=== PATIENT | female | born 1985 | race Caucasian/White ===

== ENCOUNTER → 2016-11-21 | Outpatient (CLI) | payer MEDICAID ==
[2016-11-21 11:47] LABS: BASOPHILS % (AUTO) 1 % (0-2); EOSINOPHILS # (AUTO) 0.1 10^3uL; EOSINOPHILS % (AUTO) 2 % (0-4); LYMPHOCYTES # (AUTO) 2.2 X10^3; MEAN CORPUSCULAR HEMOGLOBIN 28.5 PG (26.0-34.0); MEAN CORPUSCULAR HGB CONC 34.4 g/dL (31.0-37.0); MEAN CORPUSCULAR VOLUME 83 FL (80-100); MEAN PLATELET VOLUME 10.2 FL (6.0-9.5); MONOCYTES # (AUTO) 0.7 X10^3; MONOCYTES % (AUTO) 10 % (3-11); NEUTROPHILS # (AUTO) 4.6 X10^3; NEUTROPHILS % (AUTO) 60 % (51-67); PLATELET COUNT 325 10^3uL (150-450); WHITE BLOOD COUNT 7.66 10^3uL (4.0-11.0)
[2016-11-21 12:00] LABS: ALBUMIN 4.6 g/dL (3.4-5.0); ANION GAP 18.1 MEQ/L (3-15); CALCULATED IONIZED CALCIUM 3.9 mg/dL (3.8-4.6); TOTAL PROTEIN 7.8 g/dL (6.4-8.5)
--- NOTE | 2016-11-21 12:44 | Diagnostic Imaging Report ---
INDICATION: Right upper quadrant pain AVAILABLE COMPARISONS: None EXAMINATION: Multiple real time grayscale images through the right upper quadrant were obtained. FINDINGS: The gallbladder was negative with no stone, wall thickening or abnormal pericholecystic fluid. Negative sonographic Fraga's sign. Common bile duct size was normal at 1 mm. No intrahepatic biliary ductal dilatation was identified. No hepatic lesions were visible. The visualized portions of the pancreas are negative. The tail was obscured by bowel gas. No free fluid was identified. Right kidney was negative. The aorta is within normal limits. IMPRESSION: 1. Negative right upper quadrant ultrasound. Dictated by: Dictated on workstation # [id number]
== END ==
LOC: LAB 11:29
PROVIDERS: ATTEND Physician Assistant
DX: R10.11 Right upper quadrant pain (principal)
CPT/HCPCS: 36415; 76705; 80053; 82150; 83690; 84443; 85025

== ENCOUNTER → 2016-11-21 | Outpatient (CLI) | payer MEDICAID ==
[2016-11-21 13:25] VITALS: BP 126/81
--- NOTE | 2016-11-21 13:25 | Urgent Care T Sheet Gen (E) ---
Intake General Temperature (Fahrenheit): 98.3 Pulse: 107 Blood Pressure Systolic: 126 Blood Pressure Diastolic: 81 Respirations: 18 SPO2: 96 Description of Symptoms Patient presents with a 1.5 year history of chronic RUQ pain. Patient has been seen intermittent over the time regarding the symptoms but states a firm diagnosis has never been established. Patient states her RUQ hurts most of the time with varying intensities. States the eating causes an increase in pain as well as nausea. She reports a 22# weight loss over the past year. Also notes intermittent heartburn. Patient takes Pepto on a regular basis for treatment of her abdominal symptoms. Denies any fevers or night sweats but states she is cold all the time. Also notes oily, yellow colored, loose stools. Patient has had lab work done which she reports "only showed the possibility of ulcers". Has also had an endoscopy and colonoscopy however both were unremarkable. Patient also described a procedure which sounds like a CT of the abdomen (she states she had a study which a dye was injected). Patient just moved to [place] and hasn't established with a PCP. Takes no scheduled medications. Respiratory Constitutional Symptoms: No Fever, Malaise EENTM: No symptoms reported Respiratory: No symptoms reported Cardiovascular: No symptoms reported Gastrointestinal/Abdominal: Abdominal pain Diarrhea NauseaNo Vomiting, RUQ All Other Systems Reviewed Remaining Systems: All other systems reviewed with negative findings Physical Exam Physical Exam General Appearance: WD/WN No apparent distress Eyes, Ears, Nose, Throat Ex: Pharynx normal (moist mucous membranes) Neck Exam: SuppleNo Lymphadenopathy Respiratory Exam: Lungs clear Normal breath sounds Cardiovascular Exam: Regular rate, rhythm GI/ Exam: Abnormal bowel sound (hypoactive sounds) Tenderness (along RUQ. area is very firm and I can't distinguish if the firmness is due to irritation or liver enlargement.)No Guarding, No Rebound, Hepatomegaly (possibly) Progress/Orders Progress Note: Progress Note Negative right upper quadrant ultrasound. CBC was unremarkable aside from elevated mean platelet volume CMP showed elevated anion gap, blood urea nitrogen, BUN/Creatinine ratio. Also showed low calculated osmolality and low ALT Amylase and lipase were normal as well as TSH Departure Urgent Care Impression Impression: Primary Impression: Right upper quadrant abdominal pain Departure Disposition: 01 HOME OR SELF-CARE Condition: Stable Referrals: MAISHA SALAZAR APRN Additional Instructions: The patient's work up was fairly unremarkable. While her gallbladder US was normal, I do still believe her symptoms are related to her gallbladder. I discussed the patient with Maisha, who has agreed to see her in f/u tomorrow. Will most likely need additional workup, which I will defer to Maisha's discretion. Appreciate working her in so quickly. Patient understands DC instructions. All questions were answered. End of report . GUILLE NUR Nov 21, 2016 13:05
== END ==
LOC: MHUC 10:48
PROVIDERS: ATTEND Physician Assistant
DX: R10.11 Right upper quadrant pain (principal)
CPT/HCPCS: 99213

== ENCOUNTER → 2016-11-24 | Outpatient (CLI) | payer MEDICAID ==
[2016-11-24 13:14] LABS: BILIRUBIN,URINE Negative (Negative); CLARITY,URINE Clear; COLOR,URINE Yellow; GLUCOSE, URINE (UA) Negative (Negative); LEUKOCYTE ESTERASE, URINE Negative (Negative); PH,URINE 5.5 (5.0 - 8.0); UROBILINOGEN,URINE 0.2 mg/dL (0.2-1.0)
[2016-11-24 13:18] LABS: URINE CENTRIFUGED VOLUME 12 mL
[2016-11-24 13:20] LABS: RBC,URINE 0-2 /HPF
== END ==
LOC: LAB 13:04
PROVIDERS: ATTEND Nurse Practitioner Family
DX: R10.11 Right upper quadrant pain (principal)
CPT/HCPCS: 81003; 81015; 87507

== ENCOUNTER → 2016-11-28 | Outpatient (CLI) | payer MEDICAID ==
--- NOTE | 2016-11-28 12:52 | Diagnostic Imaging Report ---
INDICATION: Right upper quadrant pain. COMPARISON: Gallbladder ultrasound, 11/21/2016. TECHNIQUE: Scintigraphic images were obtained following the intravenous administration of 8.4 mCi of technetium 99m labeled Choletec. Ejection fraction was calculated following the administration of 1.5 mcg CCK. Region of interest was drawn around the gallbladder and a time/activity curve was generated. DISCUSSION: Hepatic uptake and excretion are normal. There is normal appearance of activity within the gallbladder at 15 minutes and within the small bowel at 50 minutes. No retention activity seen within the common duct. Following the administration of CCK intravenously, the gallbladder ejection fraction was calculated at 8%, abnormal. Findings could be seen with chronic cholecystitis or gallbladder dyskinesia. IMPRESSION: 1. No scintigraphic evidence of bile duct obstruction. 2. Low gallbladder ejection fraction of 8%. Dictated by: Dictated on workstation # [id number]
== END ==
LOC: RAD 08:26
PROVIDERS: ATTEND Nurse Practitioner Family
DX: R10.11 Right upper quadrant pain (principal)
CPT/HCPCS: 78227; A9537; J2805

== ENCOUNTER → 2016-11-29 | Outpatient (CLI) | payer MEDICAID | LOC: LAB 13:25 | PROVIDERS: ATTEND Family Medicine | DX: R10.9 Unspecified abdominal pain (principal) | CPT/HCPCS: 81025 ==

== ENCOUNTER 2016-12-07 08:12 | Day surgery (SDC) | payer MEDICAID ==
[2016-12-07] VITALS (10 sets, daily range): BP systolic 88–144; BP diastolic 47–92
[~2016-12-07] VITALS: Ht 157.5 cm; Wt 68.6 kg
[~2016-12-07 08:12] MED LIST: ACETAMINOPHEN 500 MG TAB (TYLENOL) PO SCH; LACTATED RINGERS 1,000 ML IV SCH; SODIUM CHLORIDE FLUSH 3 ML SYR IV PRN; oxyCODONE IMMEDIATE RELEASE 5 MG (OXYIR) TAB PO SCH
--- OUTSIDE RECORDS SUMMARY | 2016-12-07 08:16 | XMS REPORT ---
Author Author GENERATED, SYSTEM Organization Unknown Address Unknown Phone Unavailable Care Team Providers Care Swimming Pool Attendant Name Role Phone KRYSTIN VALENCIA KIMBERLEY PP [phone] Reason For Visit Chief Complaint FALL Social History Functional Status Vital Signs Results Chemistry from 07/15/2016 12:50 AMSODIUM 139 MMOL/L (136-145 MMOL/L) POTASSIUM 3.5 MMOL/L (3.5-5.1 MMOL/L) CHLORIDE 103 MMOL/L (98-107 MMOL/L) TCO2 27.6 MMOL/L (21.0-32.0 MMOL/L) *ANION GAP 8.4 MMOL/L (8.0-16.0 MMOL/L) BUN 13 MG/DL (7-18 MG/DL) CREATININE 0.93 MG/DL (0.55-1.02 MG/DL) *BUN/CREATININE RATIO 14.0 (9.1-17.0 ) GLUCOSE 90 MG/DL (65-99 MG/DL) *GFR EST NON AFR GREENLANDIC 82 ML/MIN *GFR EST AFR AMER >90 ML/MIN CALCIUM 8.8 MG/DL (8.5-10.1 MG/DL) BILIRUBIN TOTAL 0.20 MG/DL (0.20-1.00 MG/DL) TOTAL PROTEIN 7.6 GM/DL (6.4-8.2 GM/DL) ALBUMIN 4.1 GM/DL (3.4-5.0 GM/DL) *GLOBULIN 3.5 GM/DL (2.3-3.5 GM/DL) *A/G RATIO 1.2 MG/DL L (1.5-2.2 MG/DL) ALK PHOS 56 U/L (46-116 U/L) ALT (SGPT) 19 U/L (16-63 U/L) AST (SGOT) 17 U/L (15-37 U/L) TROPONIN-I <0.017 NG/ML (0.000-0.056 NG/ML)Chemistry from 07/15/2016 12:45 AM* COCAINE NEGATIVE (NEG <150 ) *PCP NEGATIVE (NEG <25 ) *CANNABINOIDS POSITIVE A (NEG <50 ) *BENZODIAZEINE NEGATIVE (NEG <200 ) *AMPHETAMINE NEGATIVE (NEG <500 ) *BARBITURATES NEGATIVE (NEG <200 ) *OPIATES NEGATIVE (NEG <300 )Hematology from 07/15/2016 12:50 AMWBC 10.0 X10e3/ UL (3.6-11.2 X10e3/UL) RBC 4.40 X10e6/UL (3.63-4.92 X10e6/UL) HEMOGLOBIN 12.4 G/DL (11.0-14.3 G/DL) HEMATOCRIT 37.9 % (31.2-41.9 %) *MCV 86.1 FL (79.0-98.0 FL) *MCH 28.1 PG (27.0-33.0 PG) *MCHC 32.6 G/DL (32.0-36.0 G/DL) *RDW 13.8 % (12.3-17.0 %) *RDWSD 42.0 (37.1-47.8 ) PLATELET 314 X10e3/UL (159-386 X10e3/UL) *MPV 7.9 FL (7.4-10.4 FL) AUTOMATED DIFF PERFORMED SEGS 60.6 % *LYMPHOCYTES 28.7 % *MONOCYTES 7.3 % *EOSINOPHILS 2.3 % *BASOPHILS 1.1 % *ABSOLUTE NEUTROPHILS 6.10 X10e3/UL (1.80-7.80 X10e3/UL) *ABSOLUTE LYMPHOCYTES 2.90 X10e3/UL (1.00-3.00 X10e3/UL) *ABSOLUTE MONOCYTES 0.70 X10e3/UL (0.30-1.00 X10e3/UL) *ABSOLUTE EOSINOPHILS 0.20 X10e3/UL (0.00-0.50 X10e3/UL) *ABSOLUTE BASOPHILS 0.10 X10e3/UL (0.00-0.20 X10e3/UL)Urinalysis from 2015 12:45 AM*URINE COLOR YELLOW (STRAW/YELL/DK YELL ) *URINE APPEARANCE CLEAR (CLEAR ) URINE PH 6.0 (5.0-8.0 ) URINE SPECIFIC GRAVITY <1.005 (<=1.005->=1.030 ) *URINE GLUCOSE NEGATIVE MG/DL (NEGATIVE MG/DL) *URINE BILIRUBIN NEGATIVE (NEGATIVE ) *URINE KETONES TRACE MG/DL A (NEGATIVE MG/DL) *URINE BLOOD NEGATIVE (NEGATIVE ) *URINE PROTEIN NEGATIVE MG/DL (NEGATIVE MG/DL) *URINE UROBILINOGEN 0.2 EU/DL (0.2-1.0 EU/DL) *URINE NITRITES NEGATIVE (NEGATIVE ) *URINE LEUKOCYTES NEGATIVE (NEGATIVE ) UR NEGATIVE (NEGATIVE )[facility] History: syncope, head inj31 y/o female presenting to the ED after an episode of syncope this afternoon. Pt took a laxative and sat on the toliet. She felt lightheaded, and the next thing she remembers is waking up on the floor. She knows she hit her head on the floor due to a bump on the right side of her head. Pt states left-sided headache, neck pain, and nausea, but denies chest pain and abd pain. Pt is able to ambulate. She has a Hx of one episode of syncope, but does not have a Hx of Sz. Pt is not on medications, and has NKDA. Priors: Chest x-ray dated 09/13/2015 Findings: The heart size and pulmonary vasculature within normal limits. No consolidating infiltrates are identified. No significant pleural effusion or pneumothorax is seen. Impression: No acute abnormality. Electronically signed by: Char Che MD Dictated: 07/15/2016 08:49 CT Scan from 07/15/2016 1:15 [facility] History: syncope, head inj . 31 y/o female presenting to the ED after an episode of syncope this afternoon. Pt took a laxative and sat on the toliet. She felt lightheaded, and the next thing she remembers is waking up on the floor. She knows she hit her head on the floor due to a bump on the right side of her head. Pt states left-sided headache, neck pain, and nausea, but denies chest pain and abd pain. Pt is able to ambulate. She has a Hx of one episode of syncope, but does not have a Hx of Sz. Pt is not on medications, and has NKDA. Priors: None. Findings: Ventricles and Extra axial spaces: There is mild prominence of the ventricles, greater than expected for the patient's age. Hemorrhage: None. Cerebral parenchyma: There is mild focal atrophy of the left parietal cortex. Mass effect/midline shift: None. Brainstem/Cerebellum: Normal. Calvarium: Normal. Visualized Paranasal sinuses/Mastoids: Clear. Impression: No acute intracranial abnormality. Slight prominence of the ventricles, greater than expected for the patient's age. 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 Electronically signed by: Char Che MD Dictated: 07/15/2016 08:35 CT SPINE CERVICAL W/O CONTRAST History: syncope, head inj . 31 y/o female presenting to the ED after an episode of syncope this afternoon. Pt took a laxative and sat on the toliet. She felt lightheaded, and the next thing she remembers is waking up on the floor. She knows she hit her head on the floor due to a bump on the right side of her head. Pt states left-sided headache, neck pain, and nausea, but denies chest pain and abd pain. Pt is able to ambulate. She has a Hx of one episode of syncope, but does not have a Hx of Sz. Pt is not on medications, and has NKDA. Priors: None. Findings: There is straightening of the normal cervical lordosis. Alignment is otherwise maintained. There is no acute fracture. 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 The C5 vertebral body is also small in size compared with the remainder of the vertebral bodies. No focal disc protrusions or significant central spinal stenosis is noted. The soft tissues are unremarkable. Impression: No evidence of acute fracture or subluxation. 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 Electronically signed by: Char Che MD Dictated: 07/15/2016 08:43 Problems Encounter Diagnosis No relevant problems exist. Additional Problems Anxiety Comment:Problem resolved by [facility] Workflow upon Discharge, Status: Resolved. Chronic Pain Comment:Problem resolved by [facility] Workflow upon Discharge, Status:Resolved. Hematemesis Comment:Problem resolved by [facility] Workflow upon Discharge, Status:Resolved. Mood Disorder Comment:Problem resolved by [facility] Workflow upon Discharge, Status:Resolved. Encounters Encounter Diagnosis No relevant problems exist. Plan of Care Procedures Completed Esophagogastroduodenoscopy, by MD MAME ROBLEDO, on 09/14/2015 2: 01 PMCompleted Procedure Code: [id number] Procedure Name: not valued, on 2015 12:00 AMCompleted , on 04/26/2011 12:00 AMCompleted , on 04/26/2011 12:00 AM Immunizations Influenza, seasonal, injectable ([employer], Lot # [id number]); Administered 2014 12:31 PM; 60 MCG=0.5 ML, INTRAMUSCL Hospital Course Hospital Discharge Instructions Allergies, Adverse Reactions, Alerts Latex Allergy has not been assessed.IV Contrast Allergy has not been assessed.No Known Drug Allergies. Medication Medication reconciliation has not been performed.
[2016-12-07] MEDS ORDERED: OMEP20TA PO (08:50)
[2016-12-07] MEDS ORDERED: FLUO10TA9 PO (08:50)
[2016-12-07] MEDS ORDERED: BUPIVACAINE/EPINEPHRINE 0.25%-1:200,000 (MARCAINE) 30 ML VIAL INJ ONE (09:35)
[2016-12-07] MEDS ORDERED: MIDAZOLAM 2 MG/2 ML (VERSED) VIAL ONE (10:13)
[2016-12-07] MEDS ORDERED: ALFENTANIL 500 MCG/ML (ALFENTA) 5 ML AMP IV ONE (10:14)
[2016-12-07] MEDS ORDERED: PROPOFOL 20 ML IV ONE (10:15)
[2016-12-07] MEDS ORDERED: ONDANSETRON 2 MG/ML (Z0FRAN) 2 ML VIAL ONE (10:40)
[2016-12-07] MEDS ORDERED: diphenhydrAMINE 50 MG/ML INJ (BENADRYL) ONE (10:40)
[2016-12-07] MEDS ORDERED: ROCURONIUM 50 MG/5 ML (ZEMURON) VIAL IV ONE (10:41)
[2016-12-07] MEDS ORDERED: KETOROLAC 60 MG/2 ML (TORADOL) VIAL IM ONE (11:32)
[2016-12-07] MEDS ORDERED: GLYCOPYRROLATE 0.2 MG/ML (ROBINUL) 1 ML VIAL ONE (11:33)
[2016-12-07] MEDS ORDERED: NEOSTIGMINE 1 MG/ML SYRINGE ONE (11:33)
--- NOTE | 2016-12-07 11:44 | Diagnostic Imaging Report ---
INDICATION: Intraoperative cholangiogram. COMPARISON: Gallbladder sonogram from 11/21/2016 FINDINGS: Single image intensifier view of the right upper abdominal quadrant was obtained during intraoperative cholangiogram. Image provided shows contrast within the intra-and extrahepatic biliary ductal system, more proximal end of the common bile duct is not included on this exam, but contrast is noted within the small bowel. No distinct intraluminal filling defects are identified within visualized portions of the biliary ducts. Please note, interpreting radiologist was not present during the exam. IMPRESSION: 1. Intraoperative cholangiogram as described above. Dictated by: Dictated on workstation # [id number]
[2016-12-07] MEDS ORDERED: HYDROcodone/APAP 5 MG/325 MG (NORCO) TAB PO PRN (12:45)
[2016-12-07] MEDS ORDERED: ONDANSETRON 2 MG/ML (Z0FRAN) 2 ML VIAL IV PRN (12:50)
--- NOTE | 2016-12-07 13:25 | OPERATIVE REPORT ---
DATE OF OPERATION: 12/07/2016 PRE-OPERATIVE DIAGNOSIS: Chronic acalculous cholecystitis and umbilical hernia POST-OPERATIVE DIAGNOSIS: Chronic acalculous cholecystitis and umbilical hernia OPERATIVE PROCEDURE: Laparoscopic cholecystectomy with operative cholangiogram and incidental umbilical hernia repair. SURGEON: Gene Hendrickson MD AIRF[employer] OPERATIONS AGENT: MARIELY Meza ANESTHESIA: General orotracheal POSITION: Reversed Trendelenburg, left rotation PREP: Chlorhexidine ESTIMATED BLOOD LOSS: 25 mL FINDINGS: 1. Chronically scarred gallbladder with adhesions to surrounding mesentery and stomach. 2. Normal cholangiogram. 3. An 8 mm umbilical hernia. 4. Normal liver, stomach, duodenum, small and large intestine, and peritoneal surfaces. OPERATIVE NOTE: Following satisfactory induction of anesthesia, the patient was prepped and draped in sterile fashion. Local anesthetic of 0.25% Marcaine with epinephrine was infiltrated at planned incision sites. An infraumbilical skin crease incision was made at the midline. This was carried down, to the fascia. The umbilical hernia defect was circumferentially dissected and entered. This was found to contain preperitoneal fat that was reduced into the peritoneal cavity. Excess sac and fascial edges were sharply debrided. The sac appeared normal and therefore not submitted to pathology. The hernia defect was enlarged transversely to allow placement of the Reza blunt tipped cannula. The peritoneum was incised. The Reza cannula was advanced into the peritoneal cavity and held in place with the inflatable balloon. The video laparoscope was introduced confirming intra-peritoneal placement and the peritoneal cavity insufflated to maximum pressure of 15 mmHg with carbon dioxide. Accessory cannulas were then placed under direct vision as follows. A 10-mm canula in the midline subxiphoid position and 5 mm cannulas in the right upper and lower quadrants. The above findings were noted. The gallbladder was grasped and retracted cephalad and laterally. Adhesions of the gallbladder fundus to the surrounding structures were taken down with blunt dissection. The gallbladder cystic duct junction and cystic artery were circumferentially dissected. This dissection was carried well up onto the gallbladder fossa, thus achieving the critical view. A clip was applied across the neck of the gallbladder and the cystic duct incised for cholangiography. Local anesthetic was infiltrated. A small skin agustina made in the right upper quadrant and the 14-gauge Angiocath directed into the peritoneal cavity. The needle was removed. The Ranfac cannula was advanced through the catheter and directed into the cystic duct. This was held in place with two clips. An operative cholangiogram was performed using half strength contrast under C-arm fluoroscopic guidance. This revealed normal ductal size and anatomy with no filling defects. There was prompt extravasation of contrast into the duodenum. The cholangiogram appeared normal. The clips and the cholangiogram catheter were removed. The cystic duct was triply clipped and transected. The cystic artery was doubly clipped on the proximal side, singly on the distal side and transected. An accessory vessel was identified in the gallbladder fossa and this was also doubly clipped on the proximal side, singly on the distal side and transected. The gallbladder was removed from its fossa using electrocautery and placed in the specimen bag. The camera was changed to the subxiphoid port, and inspection of the umbilical hernia site was normal. Closure was then accomplished as follows. Accessory cannulas were removed under direct vision revealing good hemostasis at their insertion sites. The peritoneal cavity was deflated of excess carbon dioxide. The gallbladder, in specimen bag, was removed by way of the infraumbilical incision and submitted to pathology. The umbilical hernia defect was then closed transversely with interrupted figure-of-8 sutures of #0 PDS. All sutures were placed under direct vision following which they were tied. The subxiphoid incision fascia was closed with a single, simple interrupted suture of #0 Vicryl. The umbilicus was tacked to the fascia with a 3-0 Vicryl suture. The skin incisions were closed with continuous subcuticular suture of 4-0 Monocryl and Dermabond dressing. Patient tolerated the procedure well and transferred to recovery in stable condition. Final instrument, needle and sponge counts correct.
--- NOTE | 2016-12-07 14:55 | NUR ---
patient was taken to the bathroom and pt states that it feels like she has to go to the bathroom but nothing is coming out. Dr. Hendrickson notified. Waiting a return call
--- NOTE | 2016-12-07 15:33 | NUR ---
patient complains that pain is getting worse and pain is in mid lower abd. bladder scanned obtained and showed 266cc of fluid. Dr Hendrickson's office recalled and nurse updated orders received for a straight cath
--- NOTE | 2016-12-07 15:53 | NUR ---
straight cathed with 400cc returned
--- NOTE | 2016-12-07 16:05 | NUR ---
Pt admitted to room 317 via cart from [facility] accompanied by Marysol Alvarado RN and patients boyfriend Steve.
[2016-12-07] MEDS ORDERED: ACETAMINOPHEN 325 MG TAB (TYLENOL) PO PRN (16:15)
[2016-12-07] MEDS ORDERED: morphine INJ 4 MG/ML 1 ML SYRINGE IV PRN (16:15)
[2016-12-07] MEDS ORDERED: NS FLUSH 10 ML PRN IV (16:30)
[2016-12-07] MEDS: morphine INJ 2 MG/ML 1 ML SYRINGE IV PRN ×3 (16:31→21:24)
--- NOTE | 2016-12-07 16:35 | NUR ---
Pt screaming out in pain- states that her abdominal pain is rated 10/10 and radiates to her back- Dr. Hendrickson in room and aware of this c/o. Morphine 2mg IV given now. States she is also nauseated- will give Zofran.
[2016-12-07] MEDS: ONDANSETRON 2 MG/ML (Z0FRAN) 2 ML VIAL IV PRN (16:37)
--- NOTE | 2016-12-07 16:40 | NUR ---
Zofran 4mg IV given at this time for nausea. Pt does not communicate appropriately with staff- only monisha. When nurse is sitting outside of room, patient talks to boyfriend at an appropriate volume.
--- NOTE | 2016-12-07 16:51 | Progress Note (E) ---
Progress Note This patient underwent laparoscopic cholecystectomy with negative cholangiogram and repair of umbilical hernia today. She has intractable pain and is placed in observation overnight. She complains of pain in the mid abdomen radiating to her back. This is not controlled with oral medications. She also has nausea. No respiratory or urinary tract symptoms. The patient did have a distended bladder and 400 cc was removed by straight catheter by the nursing staff. This did not improve her pain. Currently vitals are stable and the patient appears uncomfortable. Lungs are clear. Abdomen is soft with mild superficial tenderness at the incision sites. Normal bowel sounds. Plan currently is admission for pain and nausea control. We'll recheck labs tomorrow. Patient and significant other advised and agreeable. On a separate note, the radiology report for the cholangiogram only mentions the proximal ductal system. The patient had normal proximal and distal ductal systems as seen through 2 separate imaging captures. I've asked radiology to track down the second image and provide to the radiologist for amended report. JORGE A MARRUFO MD Dec 07, 2016 16:51
--- NOTE | 2016-12-07 17:21 | NUR ---
MED REC COMPLETED-current med list obtained from patient's PCP listing and retail pharmacy.
--- NOTE | 2016-12-07 18:32 | NUR ---
Attempted call to Dr. Melo regarding patient c/o numbness in chest, arms, legs and face. Then patient starting c/o that she felt as though someone was sitting on her chest. VSS although RR when in pain is 24-32. Calms with breathing techniques.
[2016-12-07] MEDS: KETOROLAC 30 MG/ML (TORADOL) 1 ML VIAL IV PRN (18:46)
--- NOTE | 2016-12-07 18:46 | NUR ---
Dr. Melo returned call to this nurse- [facility] for STAT labs and Ketorlac 30mg IV Q6H prn pain- [facility] called for stat labs.
[2016-12-07 19:17] LABS: ANION GAP 17.2 MEQ/L (3-15); BUN/CREATININE RATIO 19 (10-20)
--- NOTE | 2016-12-07 19:30 | NUR ---
Resting in bed. Quiet at this time. Taking liquids without nausea. IV patent at 80 cc an hour. No complications at site. Incisions clean and dry. Indermil intact. Abdomen soft. Denies need to void yet. Lab here to draw blood as ordered by Dr Melo.
--- NOTE | 2016-12-07 20:20 | NUR ---
Dr Melo in to see patient. Orders obtained.
[2016-12-07] MEDS ORDERED: CALCIUM GLUCONATE 1,000 MG in D5W (IVPB) 50 ML IV ONE (20:35)
[2016-12-07] MEDS ORDERED: FLUOXETINE 10 MG PO SCH (21:00)
[2016-12-07] MEDS ORDERED: D5W (IVPB) 50 ML IV ONE (21:03)
[2016-12-07] MEDS ORDERED: CALCIUM GLUCONATE 100 MG/ML 10 ML VIAL ONE (21:03)
[2016-12-07] MEDS: CALCIUM CARBONATE CHEWABLE 300 MG (TUMS) TABLET PO SCH (21:11)
--- NOTE | 2016-12-07 21:54 | NUR ---
MS 2mg administered IV for abdominal incisional discomfort.
[2016-12-07] MEDS: oxyCODONE IMMEDIATE RELEASE 5 MG (OXYIR) TAB PO PRN (22:55)
--- NOTE | 2016-12-07 22:55 | NUR ---
Oxy IR 5mg administered for incisional discomfort. Up to the bathroom. Unable to void. Feels some pressure. Bladder scan shows 350 cc urine. Patient is not uncomfortable at this time.
--- NOTE | 2016-12-08 | NUR ---
Resting in bed. Awakened for vitals. No discomforts voiced.
[2016-12-08 00:03] VITALS: BP 131/74
--- NOTE | 2016-12-08 01:30 | NUR ---
Voided 200 cc yellow urine. Small amount of sediment in urine. Had small brown BM, slight amount of blood. Returned to bed. Resting.
[2016-12-08] MEDS: KETOROLAC 30 MG/ML (TORADOL) 1 ML VIAL IV PRN ×2 (03:06→08:56)
[2016-12-08] MEDS: oxyCODONE IMMEDIATE RELEASE 5 MG (OXYIR) TAB PO PRN (03:06)
--- NOTE | 2016-12-08 03:06 | NUR ---
Had small emesis bile colored secretions. Zofran 4mg administered for nausea.
[2016-12-08] MEDS: ONDANSETRON 2 MG/ML (Z0FRAN) 2 ML VIAL IV PRN ×2 (03:24→08:58)
--- NOTE | 2016-12-08 05:00 | NUR ---
Resting in bed. Nauseated. Emesis of 100 cc bile colored secretions. Cool cloth to head. Face red. Given swabs, and oral care done. Hyperventilates at times. Reminded to take slow deep breaths. Takes patient awhile to calm down. IV NS infusing at 80 cc hr.
[2016-12-08 05:37] VITALS: BP 146/65
[2016-12-08 05:51] LABS: MEAN CORPUSCULAR HEMOGLOBIN 28.3 PG (26.0-34.0); MEAN CORPUSCULAR HGB CONC 34.6 g/dL (31.0-37.0); MEAN CORPUSCULAR VOLUME 82 FL (80-100); MEAN PLATELET VOLUME 10.4 FL (6.0-9.5); PLATELET COUNT 262 10^3uL (150-450); WHITE BLOOD COUNT 14.15 10^3uL (4.0-11.0)
--- NOTE | 2016-12-08 06:00 | NUR ---
Voided 400cc urine. No further emesis this morning. Resting on back. Respirations non-labored at this time. IV patent. Denies nausea at this time. Call light within reach.
[2016-12-08 06:21] LABS: BAND NEUTROPHILS % 0 % (0-6); EOSINOPHILS % 3 % (0-4); LYMPHOCYTES # 5.4 #; MONOCYTES # 0.4 #; MONOCYTES % 3 % (3-11); RBC MORPH NORMAL (NORMAL); SEGMENTED NEUTROPHILS % 56 % (51-67); TOTAL CELLS COUNTED 100
[2016-12-08 06:42] LABS: ANION GAP 17.3 MEQ/L (3-15); TOTAL PROTEIN 7.2 g/dL (6.4-8.5)
[2016-12-08] MEDS: morphine INJ 2 MG/ML 1 ML SYRINGE IV PRN (07:31)
--- NOTE | 2016-12-08 07:39 | NUR ---
Pt lying in bed, crying out loudly that staff can hear her at nurses station. Rates her midline abdominal pain 8/10- she is tremulous and face is flushed. RR increased again at 28/min- encouraged to control her breathing but patient does not slow her breathing at this time. Morphine 2mg IV given now. Has bouts of nausea with retching- spits up small amounts saliva. No emesis as of yet. IVF infusing without difficulty. Call light within reach.
[2016-12-08 07:51] VITALS: BP 91/68
[2016-12-08] MEDS: CALCIUM CARBONATE CHEWABLE 300 MG (TUMS) TABLET PO SCH ×2 (08:57→12:15)
[2016-12-08] MEDS ORDERED: FLUOXETINE 10 MG PO SCH (09:00)
[2016-12-08] MEDS ORDERED: NS FLUSH 3 ML DAILY IV SCH (09:00)
[2016-12-08] MEDS ORDERED: FAMOTIDINE 20 MG (PEPCID) TABLET PO SCH (09:25)
[2016-12-08] MEDS ORDERED: NALBUPHINE 10 MG/ML (NUBAIN) 1 ML AMP IV PRN (09:25)
--- NOTE | 2016-12-08 09:47 | Progress Note (E) ---
Progress Note Surgery note Subjective: Pain improved. Still with some nausea, poor oral intake. No chest pain or dyspnea. Has voided, ambulated. No paresthesias today. Objective: Events of last night noted. Patient alert, oriented, and in no distress. Lungs clear. No CVAT. CV regular rhythm, no murmurs or gallops. Abdomen soft with normal bowel sounds. Minimal superficial incisional tenderness only. Incisions intact. Negative Chvostek's sign. Labs noted. Impression: Nausea, possible related to narcotics. I think some of her symptoms last night were anxiety related. Currently stable clinically. Recommendations: I discussed Rx options with our pharmacist, Domenico Wei. Because of her Prozac use, I am reluctant to prescribe Reglan. I will initially try discontinuing opiod, substituting scheduled Toradol and Nubain as needed. If nausea persists, consider low dose Reglan or erythromycin. If symptoms controlled, may discharge later today. Patient advised and agreeable. JORGE A MARRUFO MD Dec 08, 2016 09:47
--- NOTE | 2016-12-08 10:04 | NUR ---
Dr. Hendrickson has been in to see patient this AM. Nubain 10mg IV given now for 5/10 abdominal pain. Pepcid administered without difficulty. Shades open, bedding changed, patient up to sink to brush teeth and wash her face. 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
--- NOTE | 2016-12-08 10:13 | NUR ---
Pt ambulated 1 full lap with STUDY ABROAD ADVISOR without c/o. In shower now.
[2016-12-08 12:00] VITALS: BP 103/57
--- NOTE | 2016-12-08 12:19 | NUR ---
Pt sitting up in chair, eating clear liquid diet without nausea. Abdominal pain is much improved- rates pain 2/10 at this time. Scheduled Toradol and Tums administered at this time.
[2016-12-08] MEDS ORDERED: KETOROLAC 30 MG/ML (TORADOL) 1 ML VIAL IV SCH (13:00)
--- NOTE | 2016-12-08 13:17 | NUR ---
Pt ate approx 50% clear liquid lunch tray- stops due to feeling full. Denies nausea at this time or worsening pain.
--- NOTE | 2016-12-08 13:54 | NUR ---
Pt tolerating liquids without c/o nausea- SL IV per Dr. Hendrickson orders as well as advanced diet to Full Liquid
--- NOTE | 2016-12-08 14:46 | Discharge Instructions (E) ---
Discharge Instructions Instructions No dressing needed. Wounds closed with Dermabond. You may shower today. No immersion of incisions in water (tub, whirlpool, swimming) for 2 weeks. Activity Instructions Do not drive until pain free, off pain medications. No lifting or straining over 20 lbs. for [address] Hendrickson, 2 weeks. Discharge Diet: Heart Healthy JORGE A HENDRICKSON MD Dec 08, 2016 14:46
[2016-12-08] MEDS ORDERED: IBUP-1772 PO (14:50)
[2016-12-08] MEDS ORDERED: TRM50T PO (14:50)
--- NOTE | 2016-12-08 15:07 | NUR ---
20g IV dc'd from [facility]. Tip intact, site without redness/swelling or bleeding. Discharge instructions reviewed with patient and she verbalizes understanding. Signature sheets signed and copies given to patient. Script x1 given for Tramadol. Instructed patient to call to schedule follow up appt with Dr. Hendrickson. She verbalized that she will do this. Pt is dressing and awaiting her boyfriend, Steve to get off of work to pick her up.
[2016-12-08 15:11] VITALS: BP 115/58
--- NOTE | 2016-12-08 15:15 | NUR ---
Rajat Morris, Pharm. D. Candidate 2017 reviewed discharge medications with patient. Provided patient handout information for new medications. No additional questions or concerns. Patient verbalized understanding of medications.
--- NOTE | 2016-12-08 15:27 | NUR ---
Pt dismissed to home with boyfriend via ambulation accompanied by this nurse. Belongings with patient. Pt thanks staff for care received.
== END 2016-12-08 15:25 | disposition home or self-care (01) ==
LOC: ASC 08:12 → MED/SURG 16:15 → ASC 12-08 15:25
PROVIDERS: ATTEND Surgery
DX: K81.1 Chronic cholecystitis (principal); K42.9 Umbilical hernia without obstruction or gangrene; K82.8 Other specified diseases of gallbladder; R11.0 Nausea; F32.9 Major depressive disorder, single episode, unspecified; F17.210 Nicotine dependence, cigarettes, uncomplicated; K21.9 Gastro-esophageal reflux disease without esophagitis
CPT/HCPCS: 36415; 47563; 74300; 80048; 80053; 82330; 83690; 84484; 85014; 85018; 85025; A9270; J0610; J1200; J1885; J2250; J2270; J2300; J2405; J2710; J3490; J7030; J7060; J7120; Q9967